=== PATIENT | female | born 1950 | race Caucasian/White ===

== ENCOUNTER 2017-09-18 16:58 | Emergency (ER) | payer BC ==
[2017-09-18 19:38] VITALS: BP 169/77
--- NOTE | 2017-09-18 19:52 | ED ---
Throat Pain/Nasal Congestion - HPI Summary HPI Summary: 67 yr old female with sinus pressure, post nasal drip, yellow sputum. No fever or chills. The patient has had coughing spells as well worse in the morning. She has had pressure in sinuses for three weeks. No other complaints. - History of Current Complaint Chief Complaint: UCRespiratory Time Seen by Provider: 09/18/17 19:35 - Allergies/Home Medications Allergies/Adverse Reactions: Allergies Allergy/AdvReac Type Severity Reaction Status Date / Time SEASONAL ENVIRONMENTAL Allergy SNEEZE, Uncoded 09/18/17 19:35 ALLERGIES RUNNY NOSE, STUFFINESS VINYL Allergy HANDS WILL Uncoded 09/18/17 19:35 PEEL WITH VINYL GLOVES Home Medications: Home Medications Pravastatin Sodium [Pravachol] 40 mg PO DAILY 09/18/17 [History Confirmed ] PMH/Surg Hx/FS Hx/Imm Hx Cardiovascular History: Reports: Hx Hypertension Musculoskeletal History: Reports: Hx Arthritis - OSTEOARTHRITIS-LEFT THUMB Sensory History: Reports: Hx Cataracts Denies: Hx Contacts or Glasses, Hx Hearing Aid Opthamlomology History: Reports: Hx Cataracts Denies: Hx Contacts or Glasses Neurological History: Reports: Other Neuro Impairments/Disorders - RESTLESS LEG SYNDROME Psychiatric History: Reports: Hx Depression - CONTROL WITH MEDS - Surgical History Surgery Procedure, Year, and Place: Left ovarian cyst removed. May 2016 left humerous sx Hx Anesthesia Reactions: No - SPINAL Infectious Disease History: No Infectious Disease History: Denies: Hx Clostridium Difficile, Hx Hepatitis, Hx Human Immunodeficiency Virus (HIV), Hx of Known/Suspected MRSA, Hx Shingles, Hx Tuberculosis, Hx Known/ Suspected VRE, Hx Known/Suspected VRSA, History Other Infectious Disease, Traveled Outside the [place] in Last 30 Days - Family History Known Family History: Positive: None - Social History Alcohol Use: Daily Alcohol Amount: 2-5 drinks Substance Use Type: Reports: None Smoking Status (MU): Light Every Day Tobacco Smoker Type: Cigarettes Amount Used/How Often: 1-2 cigarettes daily Have You Smoked in the Last Year: No Review of Systems Negative: Fever, Chills Positive: Sore Throat, Nasal Discharge Positive: Cough All Other Systems Reviewed And Are Negative: Yes Physical Exam Triage Information Reviewed: Yes Vital Signs On Initial Exam: Initial Vitals Temp Pulse Resp BP Pulse Ox 98.9 F 62 16 169/77 100 09/18/17 19:33 09/18/17 19:33 09/18/17 19:33 09/18/17 19:33 09/18/17 19:33 Vital Signs Reviewed: Yes Appearance: Positive: Well-Appearing, No Pain Distress Skin: Positive: Warm, Skin Color Reflects Adequate Perfusion Eyes: Positive: EOMI ENT: Positive: Nasal congestion, Nasal drainage, Sinus tenderness Respiratory/Lung Sounds: Positive: Clear to Auscultation, Breath Sounds Present Abdomen Description: Positive: Nontender Musculoskeletal: Positive: Strength/ROM Intact Neurological: Positive: Sensory/Motor Intact, Alert, Oriented to Person Place, Time, CN Intact II-III Psychiatric: Positive: Normal - [place] Coma Scale Best Eye Response: 4 - Spontaneous Best Motor Response: 6 - Obeys Commands Best Verbal Response: 5 - Oriented Coma Scale Total: 15 Diagnostics - Vital Signs Vital Signs Temp Pulse Resp BP Pulse Ox 09/18/17 19:33 98.9 F 62 16 169/77 100 - Laboratory Lab Statement: Any lab studies that have been ordered have been reviewed, and results considered in the medical decision making process. EENT Course/Dx - Course Course Of Treatment: 67 yr old with sinus infection. coughing. - Diagnoses Provider Diagnoses: Sinusitis, Hypertension, Acute bronchitis Discharge - Discharge Plan Condition: Good Disposition: HOME Prescriptions: Albuterol HFA INHALER* [Ventolin HFA Inhaler*] 1 - 2 puff INH Q6H PRN #1 mdi PRN Reason: Cough Amoxicillin/Clavulanate TAB* [Augmentin TAB 875*] 875 mg PO BID #20 tab Patient Education Materials: Sinusitis (ED), Acute Bronchitis (ED), Hypertension (ED) Referrals: Danielle Rodriguez MD [Primary Care Provider] -
== END 2017-09-18 19:56 | disposition home or self-care (01) ==
LOC: UCCORT 16:58
DX: J32.9 Chronic sinusitis, unspecified (principal); J20.9 Acute bronchitis, unspecified; I10 Essential (primary) hypertension; M19.042 Primary osteoarthritis, left hand; G25.81 Restless legs syndrome; F32.9 Major depressive disorder, single episode, unspecified; F17.210 Nicotine dependence, cigarettes, uncomplicated
CPT/HCPCS: 99212; G0463